=== PATIENT | male | born 1960 | race Caucasian/White ===

== ENCOUNTER 2017-10-13 13:06 | Inpatient (IN) | payer BC, OTHER ==
[2017-10-13 14:25] VITALS: BMI 30.9
--- NOTE | 2017-10-13 15:54 | HP ---
CIWA Score - CIWA Score Nausea/Vomitin Muscle Tremors: 3 Anxiety: 4-Mod. Anxious/Guarded Agitation: 1-Slight > Activity Paroxysmal Sweats: 2 Orientation: 0-Oriented Tacttile Disturbances: 3-Moderate Itch/Numb/Burn Auditory Disturbances: 0-None Visual Disturbances: 1-Very Mild Sensitivity Headache: 0-None Present CIWA-Ar Total Score: 19 Admission ROS BHS - HPI Chief Complaint: "I'm here to get sober and to make my family proud of me." Patient is here to Detox from Alcohol. Allergies/Adverse Reactions: Allergies Allergy/AdvReac Type Severity Reaction Status Date / Time No Known Allergies Allergy Verified 10/13/17 14:36 History of Present Illness: Patient is a 56 YO male here to Detox from Alcohol. This is patient's first Detox admission at [facility]. Patient had Detox admissions at [facility] in 07/2017 and [facility] approx. 2 years ago. Longest recent period of sobriety: approx. 53 days (07/2017 - 08/2017). Exam Limitations: No Limitations - Ebola screening Have you traveled outside of the country in the last 21 days: No (N) Have you had contact with anyone from an Ebola affected area: No Have you been sick,other than usual withdrawal symptoms: No Do you have a fever: No - Review of Systems Constitutional: Diaphoresis, Malaise, Night Sweats EENT: reports: Tearing Respiratory: reports: SOB with Exertion Cardiac: reports: No Symptoms Reported GI: reports: Diarrhea, Nausea, Vomiting : reports: No Symptoms Reported Musculoskeletal: reports: Back Pain, Joint Pain, Muscle Pain, Neck Pain, Joint Stiffness Integumentary: reports: Other (Wound on Left knee (occurred approxmately 3 days ago due to fall), scabbing noted, no bleeding or unusual discharge noted.) Neuro: reports: Numbness (Bilateral Feet.), Seizure (One - 08/2016, due to ETOH use.), Tingling (Bilateral Feet.), Tremors Endocrine: reports: No Symptoms Reported Hematology: reports: No Symptoms Reported Psychiatric: reports: Judgement Intact, Mood/Affect Appropiate, Orientated x3, Anxious Other Systems: Reviewed and Negative Patient History - Patient Medical History Hx Anemia: No Hx Asthma: No Hx Chronic Obstructive Pulmonary Disease (COPD): No Hx Cancer: No Hx Cardiac Disorders: No Hx Congestive Heart Failure: No Hx Hypertension: Yes (On meds.) Hx Hypercholesterolemia: No Hx Pacemaker: No HX Cerebrovascular Accident: No Hx Seizures: Yes (08/2016, due to ETOH.) Hx Dementia: No Hx Diabetes: No Hx Gastrointestinal Disorders: No Hx Liver Disease: No Hx Genitourinary Disorders: No Hx Sexually Transmitted Disorders: No Hx Renal Disease (ESRD): No Hx Thyroid Disease: No Hx Human Immunodeficiency Virus (HIV): No (Negative History.) Hx Hepatitis C: No (Uncertain if Ever Tested.) Hx Depression: No Hx Suicide Attempt: No (PATIENT DENIES CURRENT SI / HI.) Hx Bipolar Disorder: No Hx Schizophrenia: No Other Medical History: DENIES. - Patient Surgical History Past Surgical History: Yes Hx Neurologic Surgery: No Hx Cataract Extraction: No Hx Cardiac Surgery: No Hx Lung Surgery: No Hx Breast Surgery: No Hx Breast Biopsy: No Hx Abdominal Surgery: No Hx Appendectomy: No Hx Cholecystectomy: No Hx Genitourinary Surgery: No Hx Orthopedic Surgery: Yes (Left hip rpelacement 02/2016.) Anesthesia Reaction: No - PPD History Previous Implant?: Yes Documented Results: Negative w/o proof Implanted On Prior [facility] Admission?: No PPD to be Administered?: Yes - Reproductive History Patient is a Female of Child Bearing Age (11 -55 yrs old): No (PATIENT IS MALE.) - Smoking Cessation Smoking history: Never smoked Cigars Per Day: 0 Hx Chewing Tobacco Use: No Initiated information on smoking cessation: No - Substance & Tx. History Hx Alcohol Use: Yes Hx Substance Use: Yes Substance Use Type: Alcohol, Marijuana Hx Substance Use Treatment: Yes (Detox admissions: [facility] (07/2017); [facility] (approx. 2-3 years ago)) - Substances Abused Alcohol Route: Oral Frequency: Daily Amount used: vodka(1 pint)/beer(6-12 oz cans)/wine coolers-3-4 Age of first use: 13 Date of Last Use: 10/13/17 Marijuana/Hashish Frequency: 3-6 times per week Amount used: $20/per 2 weeks Age of first use: 13 Date of Last Use: 10/11/17 Family Disease History - Family Disease History Family Disease History: Heart Disease: Mother (.), CA: Father (Lymphatic , .) Admission Physical Exam [facility] - Vital Signs Vital Signs: Vital Signs - 24 hr 10/13/17 14:22 Temperature 95.3 F L Pulse Rate 110 H Respiratory 20 Rate Blood Pressure 162/102 - Physical General Appearance: Yes: Nourished, Appropriately Dressed, Mild Distress, Tremorous, Anxious HEENTM: Yes: Hearing grossly Normal, Normocephalic, Normal Voice, ERIC, Pharynx Normal Respiratory: Yes: Chest Non-Tender, Lungs Clear, No Respiratory Distress, No Accessory Muscle Use Neck: Yes: No masses,lesions,Nodules, Supple, Trachea in good position Breast: Yes: Breast Exam Deferred Cardiology: Yes: Regular Rhythm, Regular Rate, S1, S2 Abdominal: Yes: Normal Bowel Sounds, Non Tender, Soft, Protuberent Genitourinary: Yes: Within Normal Limits Back: Yes: Decreased Range of Motion Musculoskeletal: Yes: Gait Steady, Back pain, Joint Stiffness, Muscle Pain Extremities: Yes: Tremors Neurological: Yes: Fully Oriented, Alert, Normal Mood/Affect, Normal Response Integumentary: Yes: Normal Color, Dry, Warm, Other (Scabbing wound on Left Knee. No bleeing or unusual discharge noted.) Lymphatic: Yes: Within Normal Limits - Diagnostic (1) Alcohol dependence with uncomplicated withdrawal Current Visit: Yes Status: Acute (2) Cannabis dependence, uncomplicated Current Visit: Yes Status: Acute (3) Hypertension Current Visit: Yes Status: Chronic Qualifiers: Hypertension type: essential hypertension Qualified Code(s): I10 - Essential (primary) hypertension (4) History of seizure Current Visit: Yes Status: Suspected Comment: Due to ETOH. Cleared for Admission [facility] - Detox or Rehab [facility] Level of Care: Medically Managed Detox Regimen/Protocol: Librium [facility] Breath Alcohol Content Breath Alcohol Content: 0 Urine Drug Screen - Results Drug Screen Negative: No Urine Drug Screen Results: BZO-Benzodiazepines
[2017-10-13] MEDS ORDERED: MENTHOL/PHENOL 1 EACH UD MM PRN (16:30)
[2017-10-13] MEDS ORDERED: LOPERAMIDE HCL 2 MG CAPSULE PO PRN (16:30)
[2017-10-13] MEDS ORDERED: P-EPHED 60MG/TRIPROLIDI 2.5MG TABLET PO PRN (16:30)
[2017-10-13] MEDS ORDERED: MAGNESIUM CITRATE 300 ML BOTTLE PO PRN (16:30)
[2017-10-13] MEDS ORDERED: MAGNESIUM HYDROX 2400MG/30ML ORAL SUSPENSION 30 ML CUP PO PRN (16:30)
[2017-10-13] MEDS ORDERED: ACETAMINOPHEN 325 MG TABLET (FP) PO PRN (16:30)
[2017-10-13] MEDS ORDERED: MAG HYDROX/AL HYDROX/SIMETH 30 ML UNIT-DOSE CUP PO PRN (16:30)
[2017-10-13] MEDS ORDERED: guaiFENesin/D-METHORPHAN HB 10 ML UNIT-DOSE CUPS PO PRN (16:30)
[2017-10-13] MEDS ORDERED: cloNIDine HCL 0.1 MG TABLET PO ONE (17:15)
[2017-10-13] MEDS ORDERED: chlordiazePOXIDE HCL 25 MG CAPSULE PO ONE (17:30)
[2017-10-13] MEDS ORDERED: TRIMETHOBENZAMIDE HCL 200MG/2ML INJ IM ONE (17:30)
[2017-10-13] MEDS: IBUPROFEN 400 MG TABLET (FP) PO PRN (19:30)
[2017-10-13] MEDS: chlordiazePOXIDE HCL 25 MG CAPSULE PO SCH (22:24)
[2017-10-13] MEDS: GABAPENTIN 300 MG CAPSULE (FP) PO SCH (22:25)
[2017-10-13] MEDS: BACITRACIN 0.9 GM PACKET TP SCH (22:25)
[2017-10-13] MEDS: THIAMINE HCL 100 MG TABLET (FP) PO SCH (22:25)
[2017-10-13] MEDS: CYCLOBENZAPRINE HCL 10 MG TABLET (FP) PO PRN (22:25)
[2017-10-13 23:35] LABS: URINE APPEARANCE CLEAR; URINE BILIRUBIN NEGATIVE (NEGATIVE); URINE BLOOD NEGATIVE (NEGATIVE); URINE COLOR LTYELLOW; URINE GLUCOSE (UA) NEGATIVE (NEGATIVE); URINE KETONE NEGATIVE (NEGATIVE); URINE LEUK ESTERASE NEGATIVE (NEGATIVE); URINE NITRITE NEGATIVE (NEGATIVE); URINE PROTEIN NEGATIVE (NEGATIVE); URINE UROBILINOGEN NEGATIVE mg/dL (0.2-1.0)
[2017-10-13 23:56] LABS: ALBUMIN 4.3 g/dl (3.4-5.0); ANION GAP 15 (8-16); BILIRUBIN,TOTAL 2.1 mg/dL (0.2-1.0); CALCIUM 9.4 mg/dL (8.5-10.1); CO2 24 mmol/L (21-32); CREATININE 2.5 mg/dL (0.7-1.3); GLUCOSE,RANDOM 113 mg/dL (74-106); SGOT/AST 34 U/L (15-37); SGPT/ALT 29 U/L (12-78); TOT PROT 7.6 g/dl (6.4-8.2)
[2017-10-13 23:57] LABS: ALK PHOS 107 U/L (45-117)
[2017-10-14] MEDS ORDERED: SODIUM CHLORIDE 1 GM TABLET PO ONE (04:45)
[2017-10-14] MEDS: GABAPENTIN 300 MG CAPSULE (FP) PO SCH ×3 (04:59→22:32)
[2017-10-14] MEDS: chlordiazePOXIDE HCL 25 MG CAPSULE PO SCH ×2 (04:59→10:36)
[2017-10-14] MEDS: chlordiazePOXIDE HCL 25 MG CAPSULE PO PRN ×3 (07:00→17:39)
[2017-10-14] MEDS: CYCLOBENZAPRINE HCL 10 MG TABLET (FP) PO PRN ×3 (07:00→22:33)
[2017-10-14 09:19] LABS: URINE LEUK ESTERASE Negative (NEGATIVE)
[2017-10-14 09:24] LABS: HIV 1 & 2 AB NEGATIVE; HIV 1 AGp24 NEGATIVE
[2017-10-14] MEDS ORDERED: amLODIPine BESYLATE 5 MG TABLET (FP) PO SCH (10:00)
[2017-10-14] MEDS ORDERED: LISINOPRIL 20 MG TABLET (FP) PO SCH (10:00)
[2017-10-14 10:14] LABS: MCH 28.9 pg (25.7-33.7); MCHC 32.9 g/dl (32.0-35.9); MEAN CELL VOLUME 87.8 fl (80-96); MEAN PLT VOLUME 8.7 fl (7.5-11.1); PLATELET COUNT 255 K/MM3 (134-434); RDW 15.9 % (11.9-15.9); WHITE BLOOD COUNT 10.2 K/mm3 (4.0-10.0)
[2017-10-14] MEDS: PANTOPRAZOLE 20 MG TABLET (FP) PO SCH (10:36)
[2017-10-14] MEDS: BACITRACIN 0.9 GM PACKET TP SCH ×2 (10:36→22:32)
[2017-10-14] MEDS: TAMSULOSIN HCL 0.4 MG CAP.ER.24H (FP) PO SCH (10:36)
[2017-10-14] MEDS: POTASSIUM CHLORIDE TABS 20 MEQ TABLET.ER (FP) PO SCH ×2 (10:36→22:32)
[2017-10-14] MEDS: PRENATAL VITAMINS W/ FOLIC ACID TABLET (FP) PO SCH (10:36)
[2017-10-14] MEDS: FINASTERIDE 5 MG TABLET (FP) PO SCH (10:38)
--- NOTE | 2017-10-14 11:01 | CONSULT ---
[facility] Psychiatric Consult - Data Date of interview: 10/14/17 Admission source: [facility] Identifying data: First admission to [facility] for this 56 y/o male seeking detox treatment on for alcohol and cannabis dependence.Patient is ,father of one,domiciled,unemployed and currently supported on assisted benefits. Substance Abuse History: Confirmed by patient in this session.See current [facility] report for details : Smoking history: Never smoked. Cigars Per Day: 0. Hx Chewing Tobacco Use: No. Initiated information on smoking cessation: No. - Substance & Tx. History. Hx Alcohol Use: Yes. Hx Substance Use: Yes. Substance Use Type: Alcohol, Marijuana. Hx Substance Use Treatment: Yes (Detox admissions: [facility] (07/2017); [facility] (approx. 2-3 years ago)). - Substances Abused. Alcohol. Route: Oral. Frequency: Daily. Amount used: vodka(1 pint)/beer(6-12 oz cans)/wine coolers-3-4. Age of first use: 13. Date of Last Use: 10/13/17. Marijuana/Hashish. Frequency: 3-6 times per week. Amount used: $20/per 2 weeks. Age of first use: 13. Date of Last Use: 10/11/17 Medical History: Neuropathy,withdrawal-related seizures,hypertension and recent left hip replacement. Psychiatric History: Patient denies history of psychiatric hospitalizations but he indicates previous treatment with psychotropic medications during detox care at [facility] ([place], [place]).Reportedly diagnosed with Bipolar Disorder.Mr White does not recall the names of past prescribed medications but a review of pharmacy claims yields the evidence of valproate (08/26/17),trazodone, seroquel and aripriprazole (04/13/17).Date of most recent intake of these medications : unknown.Patient reports no connection with psychiatric OPD care providers.Mr White declares that he has not followed with psychiatrists since his discharge from [facility]." They told me that I don't need to see psychiatrists or take psychiatric medications.I was informed that I don't have a mental illness,only a problem with alcohol and sometimes marihuana." Patient denies history of suicide attempts. Physical/Sexual Abuse/Trauma History: Patient denies. Additional Comment: Urine Drug Screen Results: BZO-Benzodiazepines.Noted. Mental Status Exam - Mental Status Exam Alert and Oriented to: Time, Place, Person Cognitive Function: Good Patient Appearance: Well Groomed (overweight) Mood: Hopeful, Euthymic Affect: Appropriate, Normal Range Patient Behavior: Appropriate, Cooperative Speech Pattern: Clear, Appropriate Voice Loudness: Normal Thought Process: Intact, Goal Oriented Thought Disorder: Not Present Hallucinations: Denies Suicidal Ideation: Denies Homicidal Ideation: Denies Insight/Judgement: Poor Sleep: Well (as per self-report) Appetite: Good Muscle strength/Tone: Normal Gait/Station: Normal Psychiatric Findings - Problem List ([place] 1, 2,3) (1) Alcohol dependence with uncomplicated withdrawal Current Visit: Yes Status: Acute - Initial Treatment Plan Initial Treatment Plan: Psychoeducation.Detoxification.Patient declines to resume medications previously prescribed at [facility] (March 2017),mainly seroquel,aripriprazole,valproate or trazodone.He is reminded,by blurb writer,of the utmost importance of mood stabilizers,benefits of psychopharmacotherapy.Mr White stands by his decision to abstain for psychotropic medications (with the exception of detoxification protocol).Observation.
[2017-10-14] MEDS ORDERED: FLU VACCINE QUAD 60 MCG/0.5 ML (MDV 17-18) IM ONE (12:00)
--- NOTE | 2017-10-14 14:02 | EKG ---
Test Reason : Blood Pressure : / mmHG Vent. Rate : 109 BPM Atrial Rate : 109 BPM P-R Int : 180 ms QRS Dur : 088 ms QT Int : 314 ms P-R-T Axes : 063 068 028 degrees QTc Int : 422 ms SINUS TACHYCARDIA WITH PREMATURE ATRIAL COMPLEXES CANNOT RULE OUT SEPTAL INFARCT , AGE UNDETERMINED NO PREVIOUS ECGS AVAILABLE Confirmed by ELEANOR DEE MD ([id number]) on 10/14/2017 2:01:42 PM Referred By: Confirmed By:ELEANOR DEE MD
[2017-10-14] MEDS ORDERED: chlordiazePOXIDE HCL 25 MG CAPSULE PO SCH ×4 (14:44→23:00)
--- NOTE | 2017-10-14 15:38 | PN ---
[facility] CIWA - CIWA Score Nausea/Vomitin-No Nausea/No Vomiting Muscle Tremors: 4-Moderate,w/Arms Extend Anxiety: 4-Mod. Anxious/Guarded Agitation: 4-Moderately Restless Paroxysmal Sweats: 3 Orientation: 0-Oriented Tacttile Disturbances: 0-None Auditory Disturbances: 0-None Visual Disturbances: 0-None Headache: 0-None Present CIWA-Ar Total Score: 15 BHS Progress Note (SOAP) Subjective: Tremor, sweating, interrupted sleep. Patient stated he's feeling fine and requesting to be discharged on Tuesday by 4pm so that he can attend a family constitution party. Patient is tachycardic at the moment and is encouraged to complete his detox. Patient aware of risk of seizure and due to withdrawal if not treated appropriately. As per patient, he would like his detox protocol accelerated so that he can be discharged by 4pm on Tuesday. Internal Communications Manager discussed with Dr. Nunez and protocol adjusted as per patient's request. Patient will be re-evaluated on Tuesday prior to discharge. He is instructed to follow up with his PCP within 3 days post discharge and to abstain from alcohol consumption or any illicit drug use. Patient also instructed to proceed to ER stat via ambulance if any withdrawal symptoms. Objective: 10/14/17 15:36 Last Vital Signs Temp Pulse Resp BP Pulse Ox 96.0 F L 106 H 20 146/87 10/14/17 13:34 10/14/17 13:34 10/14/17 13:34 10/14/17 13:34 Laboratory Tests 10/13/17 10/13/17 10/13/17 15:15 16:30 20:08 WBC RBC Hgb Hct MCV MCH MCHC RDW Plt Count MPV Sodium 128 L Potassium 3.4 L Chloride 89 L Carbon Dioxide 24 Anion Gap 15 BUN 32 H Creatinine 2.5 H Creat Clearance w eGFR 26.85 Random Glucose 113 H Calcium 9.4 Total Bilirubin 2.1 H AST 34 ALT 29 Alkaline Phosphatase 107 Total Protein 7.6 Albumin 4.3 Urine Color Ltyellow Urine Appearance Clear Urine pH 5.0 Ur Specific [place] 1.005 Urine Protein Negative Urine Glucose (UA) Negative Urine Ketones Negative Urine Blood Negative Urine Nitrite Negative Urine Bilirubin Negative Urine Urobilinogen Negative Ur Leukocyte Esterase Negative RPR Titer HIV 1&2 Antibody Screen Negative HIV P24 Antigen Negative 10/14/17 10/14/17 06:00 06:00 WBC 10.2 H RBC 3.63 L Hgb 10.5 L Hct 31.9 L MCV 87.8 MCH 28.9 MCHC 32.9 RDW 15.9 Plt Count 255 MPV 8.7 Sodium Potassium Chloride Carbon Dioxide Anion Gap BUN Creatinine Creat Clearance w eGFR Random Glucose Calcium Total Bilirubin AST ALT Alkaline Phosphatase Total Protein Albumin Urine Color Urine Appearance Urine pH Ur Specific [place] Urine Protein Urine Glucose (UA) Urine Ketones Urine Blood Urine Nitrite Urine Bilirubin Urine Urobilinogen Ur Leukocyte Esterase RPR Titer Nonreactive HIV 1&2 Antibody Screen HIV P24 Antigen Labs noted: K 3.4, bun 32, serum creatinine 2.5, GFR 26.85 Assessment: 10/14/17 15:38 Withdrawal symptoms Noted with hypokalemia, hyponatremia and RASHEEDA vs ARF Plan: Continue detox Detox protocol adjusted as per patient's request, will re-evaluate on Tuesday to see if patient is ready for discharge on Tuesday at 4pm as per his request Hypokalemia: continue K DUR supplement, repeat serum K level Hyponatremia: repeat serum Na level RASHEEDA vs ARF: encouraged to drink lots of water for hydration, repeat BMP in AM, follow up with PCP within 3 days post discharge for monitoring/management
[2017-10-14] MEDS: amLODIPine BESYLATE 10 MG TABLET (FP) PO SCH (17:21)
[2017-10-14] MEDS: IBUPROFEN 400 MG TABLET (FP) PO PRN (19:23)
[2017-10-14] MEDS: THIAMINE HCL 100 MG TABLET (FP) PO SCH (22:32)
[2017-10-14] MEDS: chlordiazePOXIDE 5 MG CAPSULE PO SCH (22:33)
[2017-10-15] MEDS: GABAPENTIN 300 MG CAPSULE (FP) PO SCH ×3 (05:19→22:13)
[2017-10-15] MEDS: chlordiazePOXIDE 5 MG CAPSULE PO SCH ×4 (05:21→22:13)
[2017-10-15] MEDS: PANTOPRAZOLE 20 MG TABLET (FP) PO SCH (10:20)
[2017-10-15] MEDS: TAMSULOSIN HCL 0.4 MG CAP.ER.24H (FP) PO SCH (10:20)
[2017-10-15] MEDS: amLODIPine BESYLATE 10 MG TABLET (FP) PO SCH (10:20)
[2017-10-15] MEDS: BACITRACIN 0.9 GM PACKET TP SCH ×2 (10:20→22:13)
[2017-10-15] MEDS: POTASSIUM CHLORIDE TABS 20 MEQ TABLET.ER (FP) PO SCH ×2 (10:20→22:13)
[2017-10-15] MEDS: PRENATAL VITAMINS W/ FOLIC ACID TABLET (FP) PO SCH (10:20)
[2017-10-15] MEDS: FINASTERIDE 5 MG TABLET (FP) PO SCH (10:21)
[2017-10-15] MEDS: CYCLOBENZAPRINE HCL 10 MG TABLET (FP) PO PRN ×2 (10:23→17:53)
[2017-10-15 10:25] LABS: ANION GAP 10 (8-16); CALCIUM 9.1 mg/dL (8.5-10.1); CO2 25 mmol/L (21-32); CREATININE 1.2 mg/dL (0.7-1.3); GLUCOSE,RANDOM 100 mg/dL (74-106)
--- NOTE | 2017-10-15 14:51 | PN ---
[facility] CIWA - CIWA Score Nausea/Vomitin-No Nausea/No Vomiting Muscle Tremors: 4-Moderate,w/Arms Extend Anxiety: 3 Agitation: 3 Paroxysmal Sweats: 3 Orientation: 0-Oriented Tacttile Disturbances: 0-None Auditory Disturbances: 0-None Visual Disturbances: 0-None Headache: 0-None Present CIWA-Ar Total Score: 13 S Progress Note (SOAP) Subjective: Body Aches, Sweating, Tremors. Objective: PT. A & O X 3, OBSERVED AMBULATING ON UNIT. NO ACUTE DISTRESS. 10/15/17 14:48 Vital Signs Temperature 96.4 F L 10/15/17 13:25 Pulse Rate 91 H 10/15/17 13:25 Respiratory Rate 18 10/15/17 13:25 Blood Pressure 140/82 10/15/17 13:25 O2 Sat by Pulse Oximetry (%) Laboratory Tests 10/13/17 10/13/17 10/13/17 06:00 15:15 16:30 WBC RBC Hgb Hct MCV MCH MCHC RDW Plt Count MPV Sodium 128 L Potassium 3.4 L Chloride 89 L Carbon Dioxide 24 Anion Gap 15 BUN 32 H Creatinine 2.5 H Creat Clearance w eGFR 26.85 Random Glucose 113 H Calcium 9.4 Total Bilirubin 2.1 H AST 34 ALT 29 Alkaline Phosphatase 107 Total Protein 7.6 Albumin 4.3 Urine Color Urine Appearance Urine pH Ur Specific [place] Urine Protein Urine Glucose (UA) Urine Ketones Urine Blood Urine Nitrite Urine Bilirubin Urine Urobilinogen Ur Leukocyte Esterase RPR Titer Hepatitis C Antibody <0.1 HIV 1&2 Antibody Screen Negative HIV P24 Antigen Negative 10/13/17 10/14/17 10/14/17 20:08 06:00 06:00 WBC 10.2 H RBC 3.63 L Hgb 10.5 L Hct 31.9 L MCV 87.8 MCH 28.9 MCHC 32.9 RDW 15.9 Plt Count 255 MPV 8.7 Sodium Potassium Chloride Carbon Dioxide Anion Gap BUN Creatinine Creat Clearance w eGFR Random Glucose Calcium Total Bilirubin AST ALT Alkaline Phosphatase Total Protein Albumin Urine Color Ltyellow Urine Appearance Clear Urine pH 5.0 Ur Specific [place] 1.005 Urine Protein Negative Urine Glucose (UA) Negative Urine Ketones Negative Urine Blood Negative Urine Nitrite Negative Urine Bilirubin Negative Urine Urobilinogen Negative Ur Leukocyte Esterase Negative RPR Titer Nonreactive Hepatitis C Antibody HIV 1&2 Antibody Screen HIV P24 Antigen 10/15/17 07:50 WBC RBC Hgb Hct MCV MCH MCHC RDW Plt Count MPV Sodium 136 Potassium 4.2 D Chloride 101 D Carbon Dioxide 25 Anion Gap 10 BUN 22 H D Creatinine 1.2 D Creat Clearance w eGFR Random Glucose 100 Calcium 9.1 Total Bilirubin AST ALT Alkaline Phosphatase Total Protein Albumin Urine Color Urine Appearance Urine pH Ur Specific [place] Urine Protein Urine Glucose (UA) Urine Ketones Urine Blood Urine Nitrite Urine Bilirubin Urine Urobilinogen Ur Leukocyte Esterase RPR Titer Hepatitis C Antibody HIV 1&2 Antibody Screen HIV P24 Antigen LABS NOTED. Assessment: 10/15/17 14:48 WITHDRAWAL SYMPTOMS. Plan: CONTINUE DETOX. INCREASE DAILY PO FLUID INTAKE.
[2017-10-15] MEDS: THIAMINE HCL 100 MG TABLET (FP) PO SCH (22:13)
[2017-10-15] MEDS ORDERED: chlordiazePOXIDE 5 MG CAPSULE PO SCH ×3 (23:00)
[2017-10-16 05:52] VITALS: BP 112/66; PULSE 77; TEMP 97
[2017-10-16] MEDS: chlordiazePOXIDE 5 MG CAPSULE PO SCH (05:56)
[2017-10-16] MEDS: GABAPENTIN 300 MG CAPSULE (FP) PO SCH (05:56)
--- NOTE | 2017-10-16 16:00 | DS ---
[facility] Detox Discharge Summary Admission Date: 10/13/17 - History Present History: Alcohol Dependence, Cannabis Dependence Pertinent Past History: Alcohol related seizure disorder HTN BPH GERD - Physical Exam Results Vital Signs: Vital Signs Temperature 97 F L 10/16/17 05:52 Pulse Rate 77 10/16/17 05:52 Respiratory Rate 18 10/16/17 05:52 Blood Pressure 112/66 10/16/17 05:52 O2 Sat by Pulse Oximetry (%) Pertinent Admission Physical Exam Findings: Withdrawal symptoms Laboratory Tests 10/13/17 10/13/17 10/13/17 06:00 15:15 16:30 WBC RBC Hgb Hct MCV MCH MCHC RDW Plt Count MPV Sodium 128 L Potassium 3.4 L Chloride 89 L Carbon Dioxide 24 Anion Gap 15 BUN 32 H Creatinine 2.5 H Creat Clearance w eGFR 26.85 Random Glucose 113 H Calcium 9.4 Total Bilirubin 2.1 H AST 34 ALT 29 Alkaline Phosphatase 107 Total Protein 7.6 Albumin 4.3 Urine Color Urine Appearance Urine pH Ur Specific [place] Urine Protein Urine Glucose (UA) Urine Ketones Urine Blood Urine Nitrite Urine Bilirubin Urine Urobilinogen Ur Leukocyte Esterase RPR Titer Hepatitis C Antibody <0.1 HIV 1&2 Antibody Screen Negative HIV P24 Antigen Negative 10/13/17 10/14/17 10/14/17 20:08 06:00 06:00 WBC 10.2 H RBC 3.63 L Hgb 10.5 L Hct 31.9 L MCV 87.8 MCH 28.9 MCHC 32.9 RDW 15.9 Plt Count 255 MPV 8.7 Sodium Potassium Chloride Carbon Dioxide Anion Gap BUN Creatinine Creat Clearance w eGFR Random Glucose Calcium Total Bilirubin AST ALT Alkaline Phosphatase Total Protein Albumin Urine Color Ltyellow Urine Appearance Clear Urine pH 5.0 Ur Specific [place] 1.005 Urine Protein Negative Urine Glucose (UA) Negative Urine Ketones Negative Urine Blood Negative Urine Nitrite Negative Urine Bilirubin Negative Urine Urobilinogen Negative Ur Leukocyte Esterase Negative RPR Titer Nonreactive Hepatitis C Antibody HIV 1&2 Antibody Screen HIV P24 Antigen 10/15/17 07:50 WBC RBC Hgb Hct MCV MCH MCHC RDW Plt Count MPV Sodium 136 Potassium 4.2 D Chloride 101 D Carbon Dioxide 25 Anion Gap 10 BUN 22 H D Creatinine 1.2 D Creat Clearance w eGFR Random Glucose 100 Calcium 9.1 Total Bilirubin AST ALT Alkaline Phosphatase Total Protein Albumin Urine Color Urine Appearance Urine pH Ur Specific [place] Urine Protein Urine Glucose (UA) Urine Ketones Urine Blood Urine Nitrite Urine Bilirubin Urine Urobilinogen Ur Leukocyte Esterase RPR Titer Hepatitis C Antibody HIV 1&2 Antibody Screen HIV P24 Antigen Labs noted: RASHEEDA resolved with increased PO fluids - Treatment Hospital Course: Detox Protocol Followed, Detoxed Safely, Responded well, Discharged Condition Good - Medication Discharge Medications: Ambulatory Orders Amlodipine Besylate [Norvasc -] 5 mg PO DAILY 10/13/17 Ascorbic Acid [Vitamin C -] 500 mg PO DAILY 10/13/17 Cyanocobalamin (Vitamin B-12) [Vitamin B-12] 1,000 mcg PO DAILY 10/13/17 Finasteride [Proscar -] 5 mg PO DAILY 10/13/17 Folic Acid - 1 mg PO DAILY 10/13/17 Gabapentin [Neurontin] 600 mg PO TID 10/13/17 Lisinopril [Prinivil] 20 mg PO DAILY 10/13/17 Multivitamin [Multiple Vitamins] 1 each PO DAILY 10/13/17 [place]-3 Fatty Acids/Fish Oil [Fish Oil 1,000 mg Capsule] 1,000 mg PO DAILY 10/13 Omeprazole 20 mg PO DAILY 10/13/17 Potassium Gluconate 99 mg PO DAILY 10/13/17 Quetiapine Fumarate [Seroquel -] 100 mg PO BID 10/13/17 Quetiapine Fumarate [Seroquel -] 200 mg PO HS 10/13/17 Tamsulosin HCl [Flomax] 0.4 mg PO DAILY 10/13/17 Thiamine HCl [Vitamin B1] 100 mg PO DAILY 10/13/17 - Diagnosis (1) Hypokalemia Status: Acute (2) Hyponatremia Status: Acute (3) BPH (benign prostatic hyperplasia) Status: Chronic (4) Alcohol dependence with uncomplicated withdrawal Status: Acute (5) Cannabis dependence, uncomplicated Status: Chronic (6) Hypertension Status: Chronic Qualifiers: Hypertension type: essential hypertension Qualified Code(s): I10 - Essential (primary) hypertension (7) History of seizure Status: Chronic - AMA Did Patient Leave Against Medical Advice: No (F/U with PCP within 1-2 weeks or sooner if needed)
[2017-10-16] MEDS ORDERED: chlordiazePOXIDE HCL 10 MG CAPSULE PO SCH (23:00)
== END 2017-10-16 08:32 | disposition home or self-care (01) | DRG 897 ==
LOC: YASAS 13:06 → Y3N 15:19
PROVIDERS: ADMIT Internal Medicine; ATTEND Internal Medicine
PROC: HZ2ZZZZ Detoxification Services for Substance Abuse Treatment (ICD-10-PCS; principal; 2017-10-13)
DX: F10.230 Alcohol dependence with withdrawal, uncomplicated (principal); E87.1 Hypo-osmolality and hyponatremia; F12.20 Cannabis dependence, uncomplicated; I10 Essential (primary) hypertension; E87.6 Hypokalemia; N40.0 Benign prostatic hyperplasia without lower urinary tract symptoms; Z86.69 Personal history of other diseases of the nervous system and sense organs; Z96.652 Presence of left artificial knee joint
CPT/HCPCS: 36415; 80048; 80053; 81003; 85027; 86593; 86803; 87389; 93005; 93010